=== PATIENT | female | born 1975 | race Caucasian/White ===

== ENCOUNTER 2018-01-03 12:41 | Outpatient (CLI) | payer OTHER | END 2018-01-03 21:08 | disposition home or self-care (01) | LOC: SMA 12:41 | PROVIDERS: ATTEND Family Medicine | DX: Z12.31 Encounter for screening mammogram for malignant neoplasm of breast (principal) | CPT/HCPCS: 77067 ==

== ENCOUNTER 2019-05-08 13:00 | Outpatient (CLI) | payer OTHER | END 2019-05-08 20:56 | disposition home or self-care (01) | LOC: SMA 13:00 | PROVIDERS: ATTEND Family Medicine | DX: Z12.31 Encounter for screening mammogram for malignant neoplasm of breast (principal); N60.02 Solitary cyst of left breast; Z86.018 Personal history of other benign neoplasm | CPT/HCPCS: 76642; 77067 ==

== ENCOUNTER 2019-10-16 12:43 | Outpatient (CLI) | payer OTHER | END 2019-10-16 18:55 | disposition home or self-care (01) | LOC: SUS 12:43 | PROVIDERS: ATTEND Family Medicine | DX: N60.12 Diffuse cystic mastopathy of left breast (principal) | CPT/HCPCS: 76642 ==